=== PATIENT | female | born 1945 | race Caucasian/White ===

== ENCOUNTER 2019-05-29 21:30 | Emergency (ER) | payer MEDICARE, MEDICAID ==
[2019-05-29] MEDS: ACETAMINOPHEN 325 MG TAB PO (23:20)
== END 2019-05-30 01:05 | disposition home or self-care (01) ==
LOC: E/R 05-30 01:05
DX: R10.11 Right upper quadrant pain (principal)
CPT/HCPCS: 36415; 76705; 80053; 81001; 83690; 85025; 99284-25